=== PATIENT | male | born 1970 | race Caucasian/White ===

== ENCOUNTER 2024-08-24 18:10 | Emergency (ER) | payer SELFPAY ==
[2024-08-24 18:11] VITALS: BP 170/104; PULSE 67; RESP 18; TEMP 36.8; O2SAT 99; BMI 23.7
--- NOTE | 2024-08-24 18:12 | ED_ITS ---
Discharge Plan Disposition Patient Disposition: Home, Self-Care Condition: Good Prescriptions Prescriptions: New oseltamivir [Tamiflu] 75 mg capsule 75 mg PO BID 5 Days Qty: 10 0RF prednisone 50 mg tablet 50 mg PO DAILY 5 Days Qty: 5 0RF albuterol sulfate 90 mcg/actuation HFA aerosol inhaler 1 inh inhalation Q4H PRN (Reason: shortness of breath or wheezing) Qty: 8.5 0RF bwistddbzabygds-stydeejqh-GV [Bromfed DM] 2-30-10 mg/5 mL syrup 5 ml PO Q4H PRN (Reason: sinus symptoms) Qty: 118 0RF ondansetron 4 mg tablet,disintegrating 4 mg PO QID PRN (Reason: nausea and vomiting) Qty: 10 0RF Referrals Follow up/Referrals: Provider,MD Aida [Primary Care Provider] - See instructions Xavi Tubbs MD [Physician] - See instructions Activity Restrictions/Add. Instructions Additional Instructions/Restrictions: I have sent your medicines to your pharmacy. Please take your steroids and Tamiflu to they have gone. I have referred you to pulmonology as you likely have undiagnosed COPD. Please call to make your appointment in the morning. If you have new continuing or worsening signs or symptoms follow-up with your PCP or return to the ER as needed. Clinical Impressions Clinical Impression: Influenza A COPD (chronic obstructive pulmonary disease) Qualifiers: COPD type: unspecified COPD Qualified Code(s): J44.9 - Chronic obstructive pulmonary disease, unspecified Print Language Print Language: Slovak Discharge ED Provider: Walker Will General Adult HPI <SAVI Goldstein - Last Filed: 08/24/24 19:14> General Chief complaint: Upper Respiratory Infection Stated complaint: nausea, diarhhea Time Seen by Provider: 08/24/24 18:12 History of Present Illness HPI narrative: Patient presents for evaluation of fever cough nausea vomiting diarrhea. Patient has been having 3 days of increasing cough nausea vomiting brought on by the cough as well as loose stool. Patient is residing with another person who is exhibiting the same symptoms. He denies any chest pain hemoptysis hematochezia melena and hematemesis hematuria and was a smoker of greater than a pack a day prior to today. Patient states that he is quit smoking as of right now. Related Data Previous Rx's ?Medication ?Instructions ?Recorded albuterol sulfate 90 mcg/actuation 1 inh inhalation Q4H PRN shortness 08/24/24 aerosol inhaler of breath or wheezing #8.5 grams gbbbtcqfcivnkiu-esnsxhuppgircdc-AV 5 ml PO Q4H PRN sinus symptoms 08/24/24 2 mg-30 mg-10 mg/5 mL oral syrup #118 mL (Bromfed DM) ondansetron 4 mg disintegrating 4 mg PO QID PRN nausea and 08/24/24 tablet vomiting #10 tabs oseltamivir 75 mg capsule (Tamiflu) 75 mg PO BID 5 days #10 caps 08/24/24 prednisone 50 mg tablet 50 mg PO DAILY 5 days #5 tabs 08/24/24 Allergies Allergy/AdvReac Type Severity Reaction Status Date / Time Penicillins Allergy Anaphylaxis Verified 08/24/24 18:23 PFS <SAVI Goldstein - Last Filed: 08/24/24 19:14> [facility] Disclaimer: The information contained in this section may have been updated after the patient was seen, as this information can be updated by other users. Social History (Updated 08/24/24 @ 19:14 by SAVI Goldstein) Smoking Status: Current every day smoker alcohol intake: never current occupational status: unemployed Travel in the last 8 weeks: None Have you lived/traveled outside [place] in past 30 days?: No Contact w/someone who lives/traveled outside US past 30 days?: No Exposure to someone with infectious disease in past 14 days?: No Do you have a fever (greater than 100.4 F or 38 C)?: No Have you tested positive for COVID-19: No Exposed to someone with COVID-19 in past 14 days?: No Do you have a sore throat?: No Do you have a cough?: No Do you have any weakness?: Yes Do you have any diarrhea?: Yes Are you experiencing any unusual bleeding?: No Do you have any muscle aches/pain?: No Do you have any abdominal pain?: No Are you experiencing loss of taste or smell?: No <SAVI Goldstein - Last Filed: 08/24/24 19:14> ROS Obtained: Yes Systems reviewed as appropriate & no additional complaints except as documented Physical Exam <SAVI Goldstein - Last Filed: 08/24/24 19:14> General General appearance: alert and in no apparent distress Respiratory Respiratory exam: Present wheezes; Absent normal lung sounds bilaterally or respiratory distress Cardiovascular Cardiovascular exam: Present regular rate Neurological Exam Neurological exam: Present alert and oriented X3 Medical Decision Making <SAVI Goldstein - Last Filed: 08/24/24 19:14> Medical Records Medical records reviewed: Yes I reviewed the patient's medical records. Screening: Per USPSTF and CDC recommendations, given the prevalence of disease in our region, it is our hospital?s policy to screen for HIV and viral Hepatitis for all patients aged 18 and over and those with ongoing risk factors. Darek Inquiry Pt receiving controlled substance: No Vital Signs: 08/24/24 18:11 08/24/24 18:20 08/24/24 19:23 Temperature 98.2 F 98 F Temperature Source Oral Oral Pulse Rate 78 77 Pulse Rate [Radial] 67 Respiratory Rate 18 16 Blood Pressure 158/93 H Blood Pressure [Right Arm] 170/104 H Blood Pressure Mean [Right Arm] 126 Blood Pressure Source Automatic Cuff Blood Pressure Source [Right Arm] Automatic Cuff Blood Pressure Position Sitting Blood Pressure Position [Right Arm] Sitting 02 Sat by Pulse Oximetry 99 98 Oxygen Delivery Method Room Air Room Air Lab Data Lab results reviewed: Yes I reviewed the patient's lab results. Lab Results 08/24/24 18:18: SARS-CoV-2 (PCR) Not detected, Influenza A Untype (PCR) Detected A, Influenza Type B (PCR) Not detected 08/24/24 18:30: WBC 7.0, RBC 4.83, Hgb 15.5, Hct 43.8, MCV 90.7, MCH 32.1 H, MCHC 35.4, RDW 11.8, Plt Count 166, MPV 11.6 H, Neut % (Auto) 83.9 H, Lymph % (Auto) 8.8 L, Taliaferro % (Auto) 6.6, Eos % (Auto) 0.3, Baso % (Auto) 0.3, Neut # (Auto) 5.9, Lymph # (Auto) 0.6 L, Taliaferro # (Auto) 0.5, Eos # (Auto) 0.0, Baso # (Auto) 0.0, PT 10.6, INR 0.94, Sodium 135 L, Potassium 4.0, Chloride 100, Carbon Dioxide 25, Anion Gap 14.0, BUN 9, Creatinine 0.80, Estimated Creat Clear 118, Estimated GFR 102, Est GFR ( Amer) 123, Glucose 122 H, Calcium 8.8, M agnesium 1.5 L, Total Bilirubin 0.6, AST 31, ALT 22, Alkaline Phosphatase 83, Troponin I < 0.01, Total Protein 6.8, Albumin 4.3, Globulin 2.5, Albumin/Globulin Ratio 1.7, Procalcitonin 0.038 08/24/24 18:34: VBG pH 7.43 H, VBG pCO2 35.7, VBG pO2 42.4 H, VBG HCO3 23.1, VBG Total CO2 24.2, VBG O2 Saturation 83.0 H, VBG Base Excess -1.2, VBG Lactic Acid 1.5 08/24/24 18:30 08/24/24 18:30 Orders (Tests/Meds): ED MEDICATIONS Discontinued Medications Generic Name Dose Route Start Last Admin Trade Name Tristin PRN Reason Stop Dose Admin Acetaminophen 1,000 mg 08/24/24 18:20 08/24/24 18:30 Acetaminophen 500mg Tab PO 08/24/24 18:21 1,000 mg ONCE ONE Administration Albuterol/Ipratropium 9 ml 08/24/24 18:20 08/24/24 18:30 Ipratropium/Albuterol 3 Ml Neb IH 08/24/24 18:21 9 ml ONCE ONE Administration Dexamethasone Sodium Phosphate 10 mg 08/24/24 18:20 08/24/24 18:53 Dexamethasone 4mg/Ml 5ml Mdv IV 08/24/24 18:21 Not Given ONCE ONE Sodium Chloride 1,000 mls @ 999 mls/hr 08/24/24 18:20 08/24/24 18:54 Sod Chlor 0.9% 1000ml Bag IV 08/24/24 19:20 Not Given .Q1H1M ONE Magnesium Sulfate 2 gm in 50 mls @ 50 mls/hr 08/24/24 18:32 08/24/24 18:54 Magnesium Sulfate 2gm/50ml Premix IV 08/24/24 19:31 Not Given ONCE ONE Ketorolac Tromethamine 15 mg 08/24/24 18:20 08/24/24 18:54 Ketorolac 30mg/Ml Vial IV 08/24/24 18:21 Not Given ONCE ONE Ondansetron HCl 4 mg 08/24/24 18:20 08/24/24 18:54 Ondansetron 4mg/2ml Vial IV 08/24/24 18:21 Not Given ONCE ONE Oseltamivir Phosphate 75 mg 08/24/24 19:03 08/24/24 19:14 Oseltamivir 75mg Capsule PO 08/24/24 19:04 75 mg ONCE ONE Administration ORDERS Category Date Time Status Chest XR 2 view (NOT portable) [XR chest 2V] Stat Exams 08/24/24 18:21 Completed CBC w/Auto Diff [Complete Blood Count Auto Diff] Stat Lab 08/24/24 18:30 Completed CMP [Comprehensive Metabolic Panel] Stat Lab 08/24/24 18:30 Completed INR [Prothrombin Time INR] Stat Lab 08/24/24 18:30 Completed Magnesium Stat Lab 08/24/24 18:30 Completed Procalcitonin Stat Lab 08/24/24 18:30 Completed Rapid PCR Covid and Flu A/B Stat Lab 08/24/24 18:18 Completed Trop I [Troponin I] Stat Lab 08/24/24 18:30 Completed VBG [Venous Blood Gas] Stat RT 08/24/24 18:34 Completed Medical Decision Narrative: In summary patient is a 54-year-old male who presents to the emergency department for evaluation of cough fever nausea vomiting diarrhea. Patient is initially hypertensive with a blood pressure 170/104 with a heart rate of 67 and sinus rhythm on the bedside monitor breathing 18 times a minute satting at 99% on room air upon arrival, afebrile at 98.2. Physical exam is remarkable for end expiratory wheezes in all 4 porter however breath sounds heard to bases, there is no increased work of breathing or accessory muscle use and the remainder of his physical exam is unremarkable and nonfocal.. Differential diagnosis includes viral or bacterial upper respiratory tract infection versus COPD exacerbation versus gastroenteritis etc. Initial workup will be conducted with hematologic labs respiratory swab plain film chest x-ray twelve-lead EKG. Initial interventions include crystalloid bolus Toradol Tylenol DuoNeb Decadron IV magnesium. Initial workup reviewed by me shows that his hematologic labs are nonactionable for a magnesium of 1.5 which is already being repleted of a and my informal interpretation of the plain film chest x-ray shows no acute processes or infiltrates but does show chronic changes consistent with COPD and influenza swab is positive for influenza A. Upon repeat evaluation patient reported significant improvement after initial intervention. Given this patient is appropriate discharge with prescriptions for Tamiflu with first dose given here albuterol inhaler prednisone and Zofran. Patient has been referred to pulmonology for workup of undiagnosed COPD <Walker Will MD - Last Filed: 08/24/24 21:22> Vital Signs: 08/24/24 18:11 08/24/24 18:20 08/24/24 19:23 Temperature 98.2 F 98 F Temperature Source Oral Oral Pulse Rate 78 77 Pulse Rate [Radial] 67 Respiratory Rate 18 16 Blood Pressure 158/93 H Blood Pressure [Right Arm] 170/104 H Blood Pressure Mean [Right Arm] 126 Blood Pressure Source Automatic Cuff Blood Pressure Source [Right Arm] Automatic Cuff Blood Pressure Position Sitting Blood Pressure Position [Right Arm] Sitting 02 Sat by Pulse Oximetry 99 98 Oxygen Delivery Method Room Air Room Air Lab Data Lab Results 08/24/24 18:18: SARS-CoV-2 (PCR) Not detected, Influenza A Untype (PCR) Detected A, Influenza Type B (PCR) Not detected 08/24/24 18:30: WBC 7.0, RBC 4.83, Hgb 15.5, Hct 43.8, MCV 90.7, MCH 32.1 H, MCHC 35.4, RDW 11.8, Plt Count 166, MPV 11.6 H, Neut % (Auto) 83.9 H, Lymph % (Auto) 8.8 L, Taliaferro % (Auto) 6.6, Eos % (Auto) 0.3, Baso % (Auto) 0.3, Neut # (Auto) 5.9, Lymph # (Auto) 0.6 L, Taliaferro # (Auto) 0.5, Eos # (Auto) 0.0, Baso # (Auto) 0.0, PT 10.6, INR 0.94, Sodium 135 L, Potassium 4.0, Chloride 100, Carbon Dioxide 25, Anion Gap 14.0, BUN 9, Creatinine 0.80, Estimated Creat Clear 118, Estimated GFR 102, Est GFR ( Amer) 123, Glucose 122 H, Calcium 8.8, M agnesium 1.5 L, Total Bilirubin 0.6, AST 31, ALT 22, Alkaline Phosphatase 83, Troponin I < 0.01, Total Protein 6.8, Albumin 4.3, Globulin 2.5, Albumin/Globulin Ratio 1.7, Procalcitonin 0.038 08/24/24 18:34: VBG pH 7.43 H, VBG pCO2 35.7, VBG pO2 42.4 H, VBG HCO3 23.1, VBG Total CO2 24.2, VBG O2 Saturation 83.0 H, VBG Base Excess -1.2, VBG Lactic Acid 1.5 Orders (Tests/Meds): ED MEDICATIONS Discontinued Medications Generic Name Dose Route Start Last Admin Trade Name Freq PRN Reason Stop Dose Admin Acetaminophen 1,000 mg 08/24/24 18:20 08/24/24 18:30 Acetaminophen 500mg Tab PO 08/24/24 18:21 1,000 mg ONCE ONE Administration Albuterol/Ipratropium 9 ml 08/24/24 18:20 08/24/24 18:30 Ipratropium/Albuterol 3 Ml Neb IH 08/24/24 18:21 9 ml ONCE ONE Administration Dexamethasone Sodium Phosphate 10 mg 08/24/24 18:20 08/24/24 18:53 Dexamethasone 4mg/Ml 5ml Mdv IV 08/24/24 18:21 Not Given ONCE ONE Sodium Chloride 1,000 mls @ 999 mls/hr 08/24/24 18:20 08/24/24 18:54 Sod Chlor 0.9% 1000ml Bag IV 08/24/24 19:20 Not Given .Q1H1M ONE Magnesium Sulfate 2 gm in 50 mls @ 50 mls/hr 08/24/24 18:32 08/24/24 18:54 Magnesium Sulfate 2gm/50ml Premix IV 08/24/24 19:31 Not Given ONCE ONE Ketorolac Tromethamine 15 mg 08/24/24 18:20 08/24/24 18:54 Ketorolac 30mg/Ml Vial IV 08/24/24 18:21 Not Given ONCE ONE Ondansetron HCl 4 mg 08/24/24 18:20 08/24/24 18:54 Ondansetron 4mg/2ml Vial IV 08/24/24 18:21 Not Given ONCE ONE Oseltamivir Phosphate 75 mg 08/24/24 19:03 08/24/24 19:14 Oseltamivir 75mg Capsule PO 08/24/24 19:04 75 mg ONCE ONE Administration ORDERS Category Date Time Status Chest XR 2 view (NOT portable) [XR chest 2V] Stat Exams 08/24/24 18:21 Completed CBC w/Auto Diff [Complete Blood Count Auto Diff] Stat Lab 08/24/24 18:30 Completed CMP [Comprehensive Metabolic Panel] Stat Lab 08/24/24 18:30 Completed INR [Prothrombin Time INR] Stat Lab 08/24/24 18:30 Completed Magnesium Stat Lab 08/24/24 18:30 Completed Procalcitonin Stat Lab 08/24/24 18:30 Completed Rapid PCR Covid and Flu A/B Stat Lab 08/24/24 18:18 Completed Trop I [Troponin I] Stat Lab 08/24/24 18:30 Completed VBG [Venous Blood Gas] Stat RT 08/24/24 18:34 Completed Medical Decision Narrative: In summary patient is a 54-year-old male who presents to the emergency department for evaluation of cough fever nausea vomiting diarrhea. Patient is initially hypertensive with a blood pressure 170/104 with a heart rate of 67 and sinus rhythm on the bedside monitor breathing 18 times a minute satting at 99% on room air upon arrival, afebrile at 98.2. Physical exam is remarkable for end expiratory wheezes in all 4 porter however breath sounds heard to bases, there is no increased work of breathing or accessory muscle use and the remainder of his physical exam is unremarkable and nonfocal.. Differential diagnosis includes viral or bacterial upper respiratory tract infection versus COPD exacerbation versus gastroenteritis etc. Initial workup will be conducted with hematologic labs respiratory swab plain film chest x-ray twelve-lead EKG. Initial interventions include crystalloid bolus Toradol Tylenol DuoNeb Decadron IV magnesium. Initial workup reviewed by me shows that his hematologic labs are nonactionable for a magnesium of 1.5 which is already being repleted of a and my informal interpretation of the plain film chest x-ray shows no acute processes or infiltrates but does show chronic changes consistent with COPD and influenza swab is positive for influenza A. Upon repeat evaluation patient reported significant improvement after initial intervention. Given this patient is appropriate discharge with prescriptions for Tamiflu with first dose given here albuterol inhaler prednisone and Zofran. Patient has been referred to pulmonology for workup of undiagnosed COPD I was consulted by the CHRISTINE, and we discussed the complexity of the problems being addressed. I approved the treatment and management plan for this patient's care in the Emergency Department, thus performing a substantive portion of the medical decision making. Walker Will MD Critical Care <SAVI Goldstein - Last Filed: 08/24/24 19:14> Critical Care Time Critical Care Time: Yes Attestation: On 08/24/24, the high probability of a clinically significant, sudden or life threatening deterioration of the following system(s) required my full and direct attention, intervention and personal management. The time I documented below is in addition to time spent performing reported procedures but includes the following listed in this critical care notation. Total Time Total Critical Care Time: 35
[2024-08-24 18:20] VITALS: PULSE 78; O2SAT 98
--- NOTE | 2024-08-24 18:21 | XR_ITS ---
PROCEDURE INFORMATION: Exam: XR Chest Exam date and time: 08/24/2024 6:24 PM Age: 54 years old Clinical indication: Cough and fever TECHNIQUE: Imaging protocol: Radiologic exam of the chest. Views: 2 views. COMPARISON: No relevant prior studies available. FINDINGS: Lungs: Central opacities with peribronchial cuffing, seen to advantage on the lateral chest radiograph. Pleural spaces: Unremarkable. No pleural effusion. No pneumothorax. Heart/Mediastinum: Unremarkable. No cardiomegaly. Bones/joints: Unremarkable. Other findings: Fragmented metallic densities overlie the left clavicle. IMPRESSION: Combination of findings that suggests viral process versus reactive airways without evidence of consolidation.
[2024-08-24 18:26] LABS: Coronavirus 19, PCR Not Detected (NotDetected); Influenza B, PCR Not Detected (NotDetected)
[2024-08-24] MEDS: IPRATROPIUM/ALBUTEROL 3 ML NEB 9 ML IH (18:30)
[2024-08-24] MEDS: ACETAMINOPHEN 500MG TAB 1000 MG PO (18:30)
--- NOTE | 2024-08-24 18:34 | PC.NURSE ---
respiratory aware of vbg order
[2024-08-24 18:40] LABS: Lactate Venous 1.5 mmol/L (0.4-2.0); VBG Base Excess -1.2 mmol/L (-2.4-2.3); VBG HCO3 23.1 mmol/L (23-30); VBG PCO2 35.7 mmol/L (35-51); VBG PH 7.43 mmol/L (7.31-7.41); VBG PO2 42.4 mmol/L (28-40); VBG Total CO2 24.2 mmol/L (23-27)
[2024-08-24 18:42] LABS: Basophils % 0.3 % (0.1-2.0); Eosinophils % 0.3 % (0.1-12.0); Hematocrit 43.8 % (42.0-52.0); Hemoglobin 15.5 g/dL (14.1-18.0); Lymphocytes # 0.6 K/mm3 (0.7-4.5); Lymphocytes % 8.8 % (10-50); Mean Corpuscular HGB Conc 35.4 g/dL (31.8-35.4); Mean Corpuscular Hemoglobin 32.1 pg (27.0-31.2); Mean Corpuscular Volume 90.7 fl (80-94); Mean Platelet Volume 11.6 fl (7.4-10.4); Monocytes # 0.5 K/mm3 (0.1-1.0); Monocytes % 6.6 % (1.7-9.3); Neutrophils # 5.9 K/mm3 (1.8-7.8); Neutrophils % 83.9 % (37.0-80.0); Platelet Count 166 K/mm3 (142-424); Red Blood Count 4.83 M/mm3 (4.60-6.20); Red Cell Distribution Width 11.8 % (11.5-17.5)
[2024-08-24 18:54] LABS: INR 0.94 (0.9-1.1); Prothrombin Time 10.6 seconds (10.1-12.5)
[2024-08-24 18:55] LABS: Alanine Aminotransferase 22 U/L (12-78); Albumin Level 4.3 g/dl (3.5-5.0); Albumin/Globulin Ratio 1.7 (1.1-1.8); Alkaline Phosphatase 83 U/L (38-126); Aspartate Amino Transferase 31 U/L (17-59); Bilirubin,Total 0.6 mg/dl (0.2-1.3); Blood Urea Nitrogen 9 mg/dl (9-20); Calcium 8.8 mg/dl (8.4-10.2); Carbon Dioxide 25 mmol/L (22.0-30.0); Chloride 100 mmol/L (98-107); Creatinine Clearance Estimated 118 mL/min (50-200); Estimated Glomerular Filt Rate 102 ml/min (>60); GFR (African American) 123 ML/MIN (>60); Globulin 2.5 g/dL (1.3-3.2); Glucose 122 mg/dl (74-100); Magnesium 1.5 mg/dl (1.6-2.3); Sodium 135 mmol/L (136-145); Total Protein,Serum 6.8 g/dl (6.3-8.2)
[2024-08-24 19:10] LABS: Influenza A, PCR Detected (NotDetected)
[2024-08-24 19:11] LABS: Troponin I < 0.01 ng/ml (0.00-0.034)
[2024-08-24 19:12] LABS: Procalcitonin 0.038 ng/mL (0.0-2.0)
[2024-08-24] MEDS: OSELTAMIVIR 75MG CAPSULE 75 MG PO (19:14)
[2024-08-24 19:23] VITALS: BP 158/93; PULSE 77; RESP 16; TEMP 36.6; O2SAT 96
== END 2024-08-24 19:35 | disposition home or self-care (01) ==
PROVIDERS: Physician Assistant; Emergency Provider Emergency Medicine
DX: J10.1 Influenza due to other identified influenza virus with other respiratory manifestations (principal); R50.9 Fever, unspecified; R11.2 Nausea with vomiting, unspecified; R19.7 Diarrhea, unspecified; J44.9 Chronic obstructive pulmonary disease, unspecified; F17.210 Nicotine dependence, cigarettes, uncomplicated
CPT/HCPCS: 71046; 80053; 82803; 83735; 84145; 84484; 85025; 85610; 87636; 96361; 96365; 96374; 96375; 99285; 99291; J1100; J1885; J2405; J7030; J7620